=== PATIENT | female | born 1940 | race Caucasian/White ===

== ENCOUNTER 2021-10-03 21:20 | Inpatient (IN) | payer OTHER ==
[2021-10-03] MEDS ORDERED: ONDANSETRON 4 MG/2 ML VIAL ONE (22:14)
--- NOTE | 2021-10-03 22:20 | RAD REPORT ---
EXAM DESCRIPTION: RAD - Abdomen Single View - 10/03/2021 10:10 pm CLINICAL HISTORY: Abd pain Pain COMPARISON: Esophagram Only dated 09/25/2021 FINDINGS: The bowel gas pattern is non-obstructive. No evidence of free air or pneumatosis. No suspi cious calcifications. No significant bony findings. Midline skin connor are present. IMPRESSION: Negative examination.
[2021-10-03] MEDS ORDERED: MORPHINE 4 MG/ML SYR ONE (22:33)
[2021-10-03 22:35] LABS: Absolute Lymphocytes (CBC) 0.6 K/uL (0.7-4.9); Hematocrit 44.9 % (36.0-45.0); Lymphocytes % 3.6 % (15.3-44.8); MCV 92.7 fL (80-100); RBC Red Blood Cell Count 4.85 M/uL (3.86-4.86)
[2021-10-03 22:55] LABS: Albumin 3.8 g/dL (3.4-5.0); Bilirubin Total 0.9 mg/dL (0.2-1.0); Potassium 3.6 mmol/L (3.5-5.1); Protein, Total 7.3 g/dL (6.4-8.2)
[2021-10-04] MEDS ORDERED: ONDANSETRON 4 MG/2 ML VIAL ONE (00:20)
[2021-10-04] MEDS ORDERED: MORPHINE 4 MG/ML SYR ONE ×2 (00:32→07:27)
[2021-10-04 00:39] LABS: Urine Blood Negative (Negative); Urine Glucose Negative (Negative); Urine Protein Negative (Negative); Urine Specific Gravity >=1.030 (1.005-1.030); Urine pH 5.5 (5.0-7.0)
[2021-10-04 01:14] LABS: Urine Bacteria 20-50 /HPF (<20); Urine Mucus 2+ /HPF (None Seen); Urine RBC <5 /HPF (None Seen)
--- NOTE | 2021-10-04 01:16 | EDPHYS ---
Physician Documentation [facility] Name: Cary Cabrera Age: 81 yrs Sex: Female : 1940 Arrival Date: 10/03/2021 Time: 21:22 Bed 7 Private MD: ED Physician Sharon Hinkle HPI: 10/03 22:53 This 81 yrs old Female presents to ER via Wheelchair with complaints of Vomiting, sp3 Abdominal Pain. 22:53 81-year-old female with history of gastroparesis, prior bowel obstruction, esophageal sp3 reflux who recently had an upper and lower GI along with plain film imaging presents with acute on chronic abdominal pain in the lower quadrants, constipation (no bowel movement for 2 days) emesis over the last 48 hours. Emesis is anytime she eats cysts of gastric contents she denies any bleeding. No chest pain, back pain, shortness of breath fever, URI symptoms, travel history, known sick contacts, or any other ROS at this time.. Historical: - Allergies: 21:31 Codeine; kl 21:31 Iodine; kl - Home Meds: 21:31 Ultram Oral [Active]; antiemetic [Active]; Nexium Oral [Active]; kl - PMHx: 21:31 Gastroenteritis; bowel obstruction; kl - PSHx: 21:31 Cholecystectomy; Appendectomy; Exploratory laparotomy; kl - Immunization history:: Adult Immunizations not up to date. - Social history:: Smoking status: Patient denies any tobacco usage or history of. ROS: 22:55 Constitutional: Negative for fever, chills, and weight loss, Eyes: Negative for injury, sp3 pain, redness, and discharge, ENT: Negative for injury, pain, and discharge, Neck: Negative for injury, pain, and swelling, Cardiovascular: Negative for chest pain, palpitations, and edema, Respiratory: Negative for shortness of breath, cough, wheezing, and pleuritic chest pain, Back: Negative for injury and pain, MS/Extremity: Negative for injury and deformity, Skin: Negative for injury, rash, and discoloration, Neuro: Negative for headache, weakness, numbness, tingling, and seizure, Psych: Negative for depression, anxiety, suicide ideation, homicidal ideation, and hallucinations, Allergy/Immunology: Negative for hives, rash, and allergies. 22:55 All other systems are negative. Exam: 22:55 Constitutional: This is a well developed, well nourished patient who is awake, alert, sp3 and in no acute distress. Head/Face: Normocephalic, atraumatic. Eyes: Pupils equal round and reactive to light, extra-ocular motions intact. Lids and lashes normal. Conjunctiva and sclera are non-icteric and not injected. Cornea within normal limits. Periorbital areas with no swelling, redness, or edema. ENT: Nares patent. No nasal discharge, no septal abnormalities noted. External auditory canals are clear. Oropharynx with no redness, swelling, or masses, exudates, or evidence of obstruction, uvula midline. Mucous membranes moist. Neck: Trachea midline, no thyromegaly or masses palpated, and no cervical lymphadenopathy. Supple, full range of motion without nuchal rigidity, or vertebral point tenderness. No Meningismus. Chest/axilla: Normal chest wall appearance and motion. Nontender with no deformity. No lesions are appreciated. Cardiovascular: Regular rate and rhythm with a normal S1 and S2. No gallops, murmurs, or rubs. Normal PMI, no JVD. No pulse deficits. Respiratory: Lungs have equal breath sounds bilaterally, clear to auscultation and percussion. No rales, rhonchi or wheezes noted. No increased work of breathing, no retractions or nasal flaring. Back: No spinal tenderness. No costovertebral tenderness. Full range of motion. Skin: Warm, dry with normal turgor. Normal color with no rashes, no lesions, and no evidence of cellulitis. MS/ Extremity: Pulses equal, no cyanosis. Neurovascular intact. Full, normal range of motion. Neuro: Awake and alert, GCS 15, oriented to person, place, time, and situation. Cranial nerves II-XII grossly intact. Motor strength 5/5 in all extremities. Sensory grossly intact. Cerebellar exam normal. Normal gait. Psych: Awake, alert, with orientation to person, place and time. Behavior, mood, and affect are within normal limits. 22:55 Abdomen/GI: Is tender bilateral lower quadrants without evidence of rebound or guarding. Nonsurgical abdomen.. Vital Signs: 21:28 BP 84 / 71; Pulse 89; Resp 18; Temp 98.2(O); Pulse Ox 96% on R/A; Weight 56.7 kg (R); kl Height 5 ft. 2 in. (157.48 cm); Pain 10/10; 22:29 BP 155 / 64; Pulse 80; Resp 17; Pulse Ox 96% ; vc1 10/04 00:30 BP 137 / 58; Pulse 95; Resp 16; Pulse Ox 95% ; vc1 02:00 BP 136 / 60; Pulse 88; Resp 16; Pulse Ox 96% ; vc1 04:30 BP 134 / 55; Pulse 88; Resp 22; Pulse Ox 92% on R/A; vg1 05:30 BP 132 / 50; Pulse 87; Resp 22; Pulse Ox 91% on R/A; vg1 06:00 BP 120 / 88; Pulse 77; Resp 23; Pulse Ox 93% on R/A; vg1 07:30 BP 135 / 47; Pulse 81; Resp 20; Pulse Ox 93% on R/A; vg1 10/03 21:28 Body Mass Index 22.86 (56.70 kg, 157.48 cm) kl MDM: 10/03 22:55 Data reviewed: vital signs, nurses notes. ED course: 81-year-old female presents with sp3 lower abdominal pain for 48 hours in conjunction with emesis. Patient also has a history of diverticulitis and prior bowel obstruction. Will obtain abdominal pain work-up including laboratory values and CT scan of the abdomen and pelvis. IV pain and nausea control as needed. Disposition will be based on work-up and patient course. Differential diagnosis includes diverticulitis, gastroenteritis, bowel obstruction, and functional abdominal pain. Johnson highly suspicious for vascular pathology, acute coronary syndrome, genitourinary pathology, AAA, BICYCLE I ASSEMBLER pathology, or any other critical findings at this time. Patient is not septic and meets no SIRS criteria.. 10/04 01:14 ED course: Work-up demonstrates leukocytosis of 15,[address] demonstrates colitis sp3 without evidence of diverticulitis. We will administer Cipro and Flagyl IV and admit patient for pain control along with continued treatment.. 01:15 Patient medically screened. sp3 10/03 21:54 Order name: CBC with Diff; Complete Time: 23:01 sp3 10/03 21:54 Order name: CMP; Complete Time: 23:01 sp3 10/03 21:54 Order name: Lipase; Complete Time: 23:01 sp3 10/03 21:54 Order name: Urine Microscopic Only; Complete Time: 01:43 sp3 10/04 00:39 Order name: Urine Dipstick-Ancillary; Complete Time: 01:02 EDMS 10/04 01:17 Order name: Urine Culture EDME 10/03 21:54 Order name: Abdomen 1 View XRAY; Complete Time: 23:01 sp3 10/03 22:16 Order name: Abdomen EDME 10/04 01:19 Order name: SARS RAPID ds4 10/03 21:54 Order name: IV Saline Lock; Complete Time: 22:19 sp3 10/03 21:54 Order name: Labs collected and sent; Complete Time: 22:19 sp3 10/03 21:54 Order name: Urine Dipstick-Ancillary (obtain specimen); Complete Time: 00:41 sp3 Administered Medications: 10/03 22:18 Drug: Zofran (Ondansetron) 4 mg Route: IVP; Site: left forearm; vc1 10/04 00:00 Follow up: Response: No adverse reaction; Nausea unchanged vc1 10/03 22:28 Drug: morphine 4 mg Route: IVP; Infused Over: 4 mins; Site: left forearm; vc1 10/04 00:00 Follow up: Response: No adverse reaction; Pain is unchanged, physician notified; RASS: vc1 Alert and Calm (0) 00:20 Drug: Zofran (Ondansetron) 4 mg Route: IVP; Site: left forearm; vc1 01:00 Follow up: Response: No adverse reaction; Nausea unchanged vc1 00:41 Drug: morphine 4 mg Route: IVP; Infused Over: 4 mins; Site: left forearm; vc1 01:30 Follow up: Response: No adverse reaction; Pain is decreased vc1 01:30 Drug: Cipro (ciprofloxacin) 400 mg Volume: 200 ml; Route: IVPB; Infused Over: 60 mins; vc1 Site: left forearm; 02:24 Follow up: Response: Adverse reaction, Physician notified; IV Status: Order to vc1 discontinue infusion 01:35 Drug: Flagyl (metroNIDAZOLE) 500 mg Volume: 100 ml; Route: IVPB; Rate: 200 ml/hr; vc1 Infused Over: 30 mins; Site: left forearm; 02:23 Follow up: Response: Adverse reaction, Physician notified; IV Status: Order to vc1 discontinue infusion 01:40 Drug: Benadryl (diphenhydrAMINE) 25 mg Route: IVP; Site: left forearm; vc1 02:00 Follow up: Response: Marked relief of symptoms vc1 01:40 Drug: Pepcid (famotidine) 20 mg Route: IVP; Site: left forearm; vc1 02:00 Follow up: Response: Marked relief of symptoms vc1 02:23 Drug: Zosyn (piperacillin-tazobactam) 3.375 grams Route: IVPB; Infused Over: 60 mins; vc1 Site: left forearm; 03:23 Follow up: IV Status: Completed infusion; IV Intake: 100ml vc1 Disposition Summary: 10/04/21 01:15 Hospitalization Ordered Hospitalization Status: Inpatient Admission sp3 Provider: Jose Dunlap sp3 Condition: Stable sp3 Problem: an acute exacerbation sp3 Symptoms: have worsened sp3 Bed/Room Type: Standard sp3 Location: Telemetry/MedSurg (Inpatient)(10/04/21 06:08) mw Room Assignment: [facility](10/04/21 06:08) mw Diagnosis - Other specified noninfective gastroenteritis and colitis sp3 Forms: - Medication Reconciliation Form sp3 - SBAR form sp3 Signatures: Dispatcher [employer] EDME Jerica Vilchis RN RN kl Webb, Martha, RN RN mw Patel, Setul, MD MD sp3 Winnie Josue tw5 Shanon Vegas RN RN vc1 Christel Marroquin PA PA sb3 Corrections: (The following items were deleted from the chart) 10/03 22:16 22:11 Abdomen Pelvis W Con+CT.RAD.BRZ ordered. EDME EDMS 10/04 01:16 01:15 Telemetry/MedSurg (Inpatient) sp3 mw 01:16 01:15 sp3 mw 06:08 01:16 [facility] ER HOLD mw mw 06:08 01:16 ERHOLD- mw mw
--- NOTE | 2021-10-04 01:16 | ER ---
Nurse's Notes [facility] Name: Cary Cabrera Age: 81 yrs Sex: Female : 1940 Arrival Date: 10/03/2021 Time: 21:22 Bed 7 Private MD: Diagnosis: Other specified noninfective gastroenteritis and colitis Presentation: 10/03 21:28 Chief complaint: Patient states: vomiting since 1 pm today seeing GI doctor for same kl issue worse today taking prescribed medication for vomiting without relief also c/o lower abdominal pain. Coronavirus screen: Vaccine status: Patient reports being unvaccinated. Ebola Screen: Patient negative for fever greater than or equal to 101.5 degrees Fahrenheit, and additional compatible Ebola Virus Disease symptoms. Initial Sepsis Screen: Does the patient meet any 2 criteria? Systolic BP < 90 mmHg. Does the patient have a suspected source of infection? No. Patient's initial sepsis screen is negative. Risk Assessment: Do you want to hurt yourself or someone else? Patient reports no desire to harm self or others. Onset of symptoms was October 03, 2021 at 13:00. 21:28 Method Of Arrival: Wheelchair 21:28 Acuity: FORTINO 3 kl Triage Assessment: 21:34 General: Appears distressed, uncomfortable, Behavior is cooperative, anxious. Pain: kl Complains of pain in right lower quadrant and left lower quadrant Pain currently is 10 out of 10 on a pain scale. GI: Reports lower abdominal pain, nausea, vomiting. Historical: - Allergies: 21:31 Codeine; kl 21:31 Iodine; kl - Home Meds: 21:31 Ultram Oral [Active]; antiemetic [Active]; Nexium Oral [Active]; kl - PMHx: 21:31 Gastroenteritis; bowel obstruction; kl - PSHx: 21:31 Cholecystectomy; Appendectomy; Exploratory laparotomy; kl - Immunization history:: Adult Immunizations not up to date. - Social history:: Smoking status: Patient denies any tobacco usage or history of. Screenin:29 Abuse screen: Denies threats or abuse. Nutritional screening: No deficits noted. vc1 Tuberculosis screening: No symptoms or risk factors identified. Fall Risk None identified. Assessment: 21:40 Reassessment: See triage assessment. vc1 21:40 Reassessment: No changes from previously documented assessment. Patient states symptoms vc1 have not improved. GI: Pt is actively vomiting bile. 22:09 General: CT called. Extra green top at bedside. . tw5 23:00 Reassessment: No changes from previously documented assessment. Patient and/or family vc1 updated on plan of care and expected duration. Pain level reassessed. 10/04 00:00 Reassessment: No changes from previously documented assessment. Patient and/or family vc1 updated on plan of care and expected duration. Pain level reassessed. 01:36 General: Pt developed a rash and hives starting at IV site up to elbow on left arm. IV vc1 antibiotics stopped and DC'd by Provider, Benadryl and Pepcid administered via IV.. 02:00 Reassessment: Patient and/or family updated on plan of care and expected duration. Pain vc1 level reassessed. Patient is alert, oriented x 3, equal unlabored respirations, skin warm/dry/pink. 03:00 Reassessment: No changes from previously documented assessment. GI: Pt is actively vc1 vomiting bile, Reports lower abdominal pain, upper abdominal pain, nausea, vomiting. Vital Signs: 10/03 21:28 BP 84 / 71; Pulse 89; Resp 18; Temp 98.2(O); Pulse Ox 96% on R/A; Weight 56.7 kg (R); Height 5 ft. 2 in. (157.48 cm); Pain 10/10; 22:29 BP 155 / 64; Pulse 80; Resp 17; Pulse Ox 96% ; vc1 10/04 00:30 BP 137 / 58; Pulse 95; Resp 16; Pulse Ox 95% ; vc1 02:00 BP 136 / 60; Pulse 88; Resp 16; Pulse Ox 96% ; vc1 04:30 BP 134 / 55; Pulse 88; Resp 22; Pulse Ox 92% on R/A; vg1 05:30 BP 132 / 50; Pulse 87; Resp 22; Pulse Ox 91% on R/A; vg1 06:00 BP 120 / 88; Pulse 77; Resp 23; Pulse Ox 93% on R/A; vg1 07:30 BP 135 / 47; Pulse 81; Resp 20; Pulse Ox 93% on R/A; vg1 10/03 21:28 Body Mass Index 22.86 (56.70 kg, 157.48 cm) ED Course: 10/03 21:22 Patient arrived in ED. bp1 21:31 Triage completed. kl 21:38 Sharon Hinkle MD is Attending Physician. sp3 21:46 Ngozi Bah, MARK is Primary Nurse. ke1 22:05 Inserted saline lock: 22 gauge in left forearm, using aseptic technique. Blood vc1 collected. 22:12 Abdomen 1 View XRAY In Process Unspecified. EDMS 22:29 Arm band placed on. vc1 22:29 Patient has correct armband on for positive identification. Bed in low position. Client vc1 placed on continuous cardiac and pulse oximetry monitoring. NIBP monitoring applied. 22:43 Abdomen In Process Unspecified. EDMS 08/ 00:47 Urine Microscopic Only Sent. vc1 01:14 Jose Dunlap is Hospitalizing Provider. sp3 03:00 No provider procedures requiring assistance completed. Patient admitted, IV remains in vc1 place. Administered Medications: 10/03 22:18 Drug: Zofran (Ondansetron) 4 mg Route: IVP; Site: left forearm; vc1 10/04 00:00 Follow up: Response: No adverse reaction; Nausea unchanged vc1 10/03 22:28 Drug: morphine 4 mg Route: IVP; Infused Over: 4 mins; Site: left forearm; vc1 10/04 00:00 Follow up: Response: No adverse reaction; Pain is unchanged, physician notified; RASS: vc1 Alert and Calm (0) 00:20 Drug: Zofran (Ondansetron) 4 mg Route: IVP; Site: left forearm; vc1 01:00 Follow up: Response: No adverse reaction; Nausea unchanged vc1 00:41 Drug: morphine 4 mg Route: IVP; Infused Over: 4 mins; Site: left forearm; vc1 01:30 Follow up: Response: No adverse reaction; Pain is decreased vc1 01:30 Drug: Cipro (ciprofloxacin) 400 mg Volume: 200 ml; Route: IVPB; Infused Over: 60 mins; vc1 Site: left forearm; 02:24 Follow up: Response: Adverse reaction, Physician notified; IV Status: Order to vc1 discontinue infusion 01:35 Drug: Flagyl (metroNIDAZOLE) 500 mg Volume: 100 ml; Route: IVPB; Rate: 200 ml/hr; vc1 Infused Over: 30 mins; Site: left forearm; 02:23 Follow up: Response: Adverse reaction, Physician notified; IV Status: Order to vc1 discontinue infusion 01:40 Drug: Benadryl (diphenhydrAMINE) 25 mg Route: IVP; Site: left forearm; vc1 02:00 Follow up: Response: Marked relief of symptoms vc1 01:40 Drug: Pepcid (famotidine) 20 mg Route: IVP; Site: left forearm; vc1 02:00 Follow up: Response: Marked relief of symptoms vc1 02:23 Drug: Zosyn (piperacillin-tazobactam) 3.375 grams Route: IVPB; Infused Over: 60 mins; vc1 Site: left forearm; 03:23 Follow up: IV Status: Completed infusion; IV Intake: 100ml vc1 Medication: 03:00 VIS not applicable for this client. vc1 Intake: 03:23 IV: 100ml; Total: 100ml. vc1 Outcome: 01:15 Decision to Hospitalize by Provider. sp3 03:00 Admitted to ER Hold. Please see [facility] for further documentation. vc1 03:00 Condition: stable 03:00 Instructed on the need for admit, medication usage. vc1 08:25 Admitted to Tele room 208. jh6 09:11 Patient left the ED. [facility] Signatures: Dispatcher [employer] Jerica Ann RN RN kl Garcia, Victoria RN RN vg1 Christine Irby Setul, MD MD sp3 Winnie Josue Natacha Clemons RN RN jh6 Shanon Vegas RN RN 1 Ngozi Bah RN RN ke1 Corrections: (The following items were deleted from the chart) 04:51 01:34 Flagyl (metroNIDAZOLE) 500 mg 100 ml IVPB at 200 ml/hr in left forearm over 30 vc1 mins 100 ml vc1 04:52 01:35 Cipro (ciprofloxacin) 400 mg 200 ml IVPB in left forearm over 60 mins 200 ml vc1 vc1
[2021-10-04] MEDS ORDERED: METRONIDAZOLE 500mg IVPB 500 MG/100 ML BAG IV ONE (01:22)
[2021-10-04] MEDS ORDERED: CIPROFLOXACIN 400mg IV 400 MG/200 ML BAG IV ONE (01:22)
[2021-10-04] MEDS ORDERED: DIPHENHYDRAMINE 50 MG/ML VIAL ONE (01:45)
[2021-10-04] MEDS ORDERED: FAMOTIDINE 20 MG/2 ML VIAL IV ONE (01:45)
[2021-10-04] MEDS ORDERED: PIPERACIL/TAZO 3.375 GM VIAL IV ONE (02:00)
[2021-10-04] MEDS ORDERED: NA CHLORIDE 0.9% 100 ML ONE (02:00)
--- NOTE | 2021-10-04 02:27 | P.HP ---
Certification for Inpatient Patient admitted to: Inpatient With expected LOS: <2 Midnights Patient will require the following post-hospital care: None Practitioner: I am a practitioner with admitting privileges, knowledge of patient current condition, hospital course, and medical plan of care. Services: Services provided to patient in accordance with Admission requirements found in Title 42 Section 412.3 of the Code of Federal Regulations Patient History Date of Service: 10/04/21 Reason for admission: Colitis History of Present Illness: Patient is an 81-year-old female with history of small bowel obstruction, gastroparesis, and GERD who presents to the ED with complaints of vomiting, abdominal pain, and constipation. Patient reports that she has been experiencing intermittent abdominal pain for 8 months now. She has been seeing Dr. Fierro outpatient who has done many tests. She is supposed to see him in a few days for the results. She states that she has not had a BM in about 1.5 days. Denies passing gas. Abdomen is soft, not distened, hypoactive bowel sounds. RN reports that patient hasn't been vomiting any contents, mainly dry heaving. Her labs today are significant for WBC 15, BUN 27, urine positive for UTI. Electrolytes WNL. CT was suggestive of colitis. She was started on Cipro and Flagyl, broke out in hives and was subsequently transitioned to Zosyn. Given morphine and Zofran with improvement in symptoms. ED provider wishes to admit patient for further evaluation and treatment. Results from previous imaging Abdominal MRI: Focal fatty infiltration right lobe of the liver suspected. Ventral hernia containing small bowel Esophagram: Mild to moderate smooth narrowing distal esophagus probably a stricture rather than mass. Small hiatal hernia Allergies ciprofloxacin Allergy (Verified 10/04/21 03:38) Hives/Rash codeine Allergy (Unverified 01/21/17 23:55) Unknown iodine Allergy (Unverified 01/21/17 23:55) Unknown metronidazole [From Flagyl] Allergy (Verified 10/04/21 03:38) Hives/Rash Home medications list reviewed: Yes Home Medications: Esomeprazole Magnesium [Nexium 24Hr] 20 mg PO DAILY 10/04/21 Ondansetron [Zofran] 4 mg PO Q6H PRN 10/04/21 traMADol HCL [Ultram] 50 mg PO TID PRN 10/04/21 - Past Medical/Surgical History Diabetic: No -: SBO -: Gastroparesis -: GERD -: Cholecystectomy -: Appendectomy -: Exploratory Laparatomy Psychosocial/ Personal History: Patient lives at home. She has 2 sons. - Family History Family History: Reviewed- Non-Contributory - Social History Smoking Status: Never smoker Alcohol use: No CD- Drugs: No Caffeine use: Yes Place of Residence: Home Review of Systems Gastrointestinal: Nausea, Vomiting, Abdominal Pain, Constipation, Melena Physical Examination - Physical Exam General: Alert, In no apparent distress HEENT: Atraumatic, PERRLA, EOMI, Sclerae nonicteric Neck: Supple, 2+ carotid pulse no bruit, No LAD, Without JVD or thyroid abnormality Respiratory: Clear to auscultation bilaterally, Normal air movement Cardiovascular: Regular rate/rhythm, Normal S1 S2 Gastrointestinal: Hypoactive, Soft and benign, Non-distended, No tenderness Musculoskeletal: No tenderness Integumentary: No rashes Neurological: Normal speech, Normal strength at 5/5 x4 extr, Normal tone, Normal affect - Studies Laboratory Data (last 24 hrs) 10/03/21 22:20: Sodium 138, Potassium 3.6, BUN 27 H, Creatinine 0.67, Glucose 147 H, Total Bilirubin 0.9, AST 22, ALT 30, Alkaline Phosphatase 80, Lipase 85 10/03/21 22:20: WBC 15.3 H, Hgb 15.3 H, Hct 44.9, Plt Count 286 Assessment and Plan - Problems (Diagnosis) (1) Colitis Current Visit: Yes Status: Acute (2) Nausea and vomiting Current Visit: Yes Status: Acute Qualifiers: Vomiting type: unspecified Qualified Code(s): R11.2 - Nausea with vomiting, unspecified (3) Constipation Current Visit: Yes Status: Acute Qualifiers: Constipation type: unspecified constipation type Qualified Code(s): K59.00 - Constipation, unspecified (4) Dehydration Current Visit: Yes Status: Acute (5) Gastroparesis Current Visit: Yes Status: Acute - Plan -NPO until vomiting/dry heaving resolves. IV fluids -Continue IV zosyn -Morphine and phenegran as needed -Monitor and replete electrolytes per protocol -Reconcile and continue home medications -Lovenox for VTE ppx -Full code Discharge Plan: Home Plan to discharge in: 48 Hours - Advance Directives Does patient have a Living Will: No Does patient have a Durable POA for Healthcare: No - Code Status/Comfort Care Code Status Assessed: Yes (Full) Critical Care: No Time Spent Managing Pts Care (In Minutes): 50
[2021-10-04 03:20] LABS: SARS-CoV-2 Antigen Rapid Res Negative (Negative)
[2021-10-04] MEDS ORDERED: ONDANSETRON 4 MG/2 ML VIAL IV PRN (03:38)
[2021-10-04 03:54] VITALS: BMI 28.3
[2021-10-04] MEDS: PROMETHAZINE INJ 25 MG/ML AMP IV PRN ×5 (04:17→20:41)
[2021-10-04] MEDS ORDERED: PROMETHAZINE INJ 25 MG/ML AMP ONE (04:19)
[2021-10-04] MEDS ORDERED: NA CHLORIDE 0.9% 50 ML ONE (04:19)
[2021-10-04] MEDS: MORPHINE 4 MG/ML SYR IV PRN ×4 (07:24→20:41)
[2021-10-04] MEDS: ACETAMINOPHEN 500 MG TAB PO PRN (09:53)
[2021-10-04] MEDS: ENOXAPARIN 40 MG/0.4 ML SQ SCH (09:56)
[2021-10-04] MEDS: PIPER TAZO 3.375 GM in NA CHLORIDE 0.9% 100 ML IV SCH ×2 (09:56→17:12)
--- NOTE | 2021-10-04 10:09 | RAD REPORT ---
EXAM DESCRIPTION: Abdomen Pelvis Wo Contrast CLINICAL HISTORY: Abdomen pain COMPARISON: None Available. TECHNIQUE: CT of the abdomen and pelvis without IV contrast. Evaluation of the solid organs and vasc ulature is suboptimal due to lack of IV contrast. This exam was performed according to our department al dose-optimization program, which includes automated exposure control, adjustment of the mA and/or kV according to patient size and/or use of iterative reconstruction technique. FINDINGS: Lung Bases: Minimal bibasilar dependent atelectasis. Bones: Mild multilevel endplate spondylosis and facet arthropathy. Age-indeterminate compression frac tures of the bowel for and L5 vertebral body with approximately 60 and 40% loss of vertebral body hei ght respectively. Right proximal femoral fixation. Osteoarthritic change of the left hip. Abdomen: Liver: The liver has normal size and density. Gallbladder: No calcified gallstones. Spleen, Pancreas, and Adrenal Glands: The spleen, pancreas, and adrenal glands are unremarkable. Kidneys: The kidneys have normal size without evidence of hydronephrosis. No obstructing ureteral janeth culi. Vasculature: Aortoiliac atherosclerosis. IVC is unremarkable. Stomach: Moderate hiatal hernia. Other: No free intraperitoneal air. Trace free fluid. Pelvis: Bladder: Urinary bladder is unremarkable. Bowel: No dilated loops of large or small bowel. Long segment wall thickening with adjacent inflamm atory change of the descending colon. Questionable retained contrast in the distal colon. Scattered d iverticula of the colon. Appendix: Not well individually identified. Pelvis: Prior hysterectomy. IMPRESSION: 1. Long segment wall thickening with adjacent inflammatory change of the descending co man. These findings could be seen with nonspecific colitis. 2. Diverticulosis without evidence of acute diverticulitis. 3. Moderate hiatal hernia. 4. Age-indeterminate compression fractures of the L4 and L5 vertebral bodies with approximately 60% loss of vertebral body height respectively. Correlation for point tenderness recommended. MRI would provide more complete characterization. Electronically signed by: Jitendra Barlow 10/03/2021 11:09 PM CDT Due to temporary technical issues with the PACS/Fluency reporting system, reports are being signed by the in house radiologists without review as a courtesy to insure prompt reporting. The interpreting radiologist is fully responsible for the content of the report.
--- NOTE | 2021-10-04 12:48 | P.PN ---
Date of Service: 10/04/21 Patient seen and examined. She is complaining of lower abdominal pain. Also complaining of sore throat and sinus drainage. She reports frequent but small mucoid bowel movements. Plan: Continue IV Zosyn. IV hydration Cetirizine for allergic rhinitis. Stool studies-C. difficile and fecal leukocyte. Clear liquid diet and advance as tolerated.
[2021-10-04] MEDS: CHLORASEPTIC LOZENGES PO PRN (13:14)
[2021-10-04] MEDS: CETIRIZINE HCL 5 MG TABLET PO PRN (13:15)
[2021-10-04] MEDS: D5NS KCL 20MEQ 20 MEQ/1,000 ML BAG IV SCH (18:40)
[2021-10-05] MEDS: MORPHINE 4 MG/ML SYR IV PRN ×5 (01:35→20:20)
[2021-10-05] MEDS: PIPER TAZO 3.375 GM in NA CHLORIDE 0.9% 100 ML IV SCH ×3 (01:35→16:54)
[2021-10-05] MEDS: PROMETHAZINE INJ 25 MG/ML AMP IV PRN ×5 (01:36→20:20)
[2021-10-05] MEDS: D5NS KCL 20MEQ 20 MEQ/1,000 ML BAG IV SCH ×2 (06:32→21:37)
[2021-10-05 06:35] LABS: Absolute Lymphocytes (CBC) 1.5 K/uL (0.7-4.9); Lymphocytes % 11.8 % (15.3-44.8); MCV 95.2 fL (80-100); MPV 8.4 fL (7.6-11.3)
[2021-10-05 06:56] LABS: Magnesium 2.1 mg/dL (1.8-2.4); Potassium 4.2 mmol/L (3.5-5.1)
[2021-10-05] MEDS: ENOXAPARIN 40 MG/0.4 ML SQ SCH (08:56)
[2021-10-05] MEDS: CALCIUM CARBONATE CHEW 500MG TAB PO PRN ×2 (10:42→20:08)
[2021-10-05] MEDS: CETIRIZINE HCL 5 MG TABLET PO PRN (14:13)
--- NOTE | 2021-10-05 18:01 | P.PN ---
Subjective Date of Service: 10/05/21 Chief Complaint: Colitis Patient did not tolerate clear liquid diet today. No diarrhea. She still complaining of abdominal pain. No recorded fever. Physical Examination - Vital Signs Temperature: 97.8 F Blood Pressure: 120/55 Pulse: 107 Respirations: 18 Pulse Ox (%): 90 Assessment And Plan - Current Problems (Diagnosis) (1) Colitis Current Visit: Yes Status: Acute (2) Gastroparesis Current Visit: Yes Status: Acute (3) Leukocytosis Current Visit: Yes Status: Acute - Plan Physical Exam General: Alert, In no apparent distress HEENT: Sclerae nonicteric Neck: Supple, Without JVD. Respiratory: Clear to auscultation bilaterally, Normal air movement Cardiovascular: Regular rate/rhythm, Normal S1 S2 Gastrointestinal: Normal bowel sounds, soft and benign, lower abdominal tenderness. Integumentary: No rashes Neurological: Normal speech, Normal strength at 5/5 x4 extr. Plan: Continue antibiotics. Clear liquids as tolerated. Check stool for C. difficile and fecal leukocytes. Supportive measures-pain management and antiemetics as needed. Continue IV fluid. Monitor electrolytes and replete as needed.
[2021-10-06] MEDS: MORPHINE 4 MG/ML SYR IV PRN ×6 (01:15→21:16)
[2021-10-06] MEDS: PROMETHAZINE INJ 25 MG/ML AMP IV PRN ×6 (01:15→21:16)
[2021-10-06] MEDS: PIPER TAZO 3.375 GM in NA CHLORIDE 0.9% 100 ML IV SCH ×3 (01:16→16:24)
[2021-10-06 03:56] LABS: Absolute Lymphocytes (CBC) 1.2 K/uL (0.7-4.9); Hematocrit 37.1 % (36.0-45.0); Lymphocytes % 11.1 % (15.3-44.8); MCV 95.7 fL (80-100); MPV 8.4 fL (7.6-11.3); RBC Red Blood Cell Count 3.88 M/uL (3.86-4.86)
[2021-10-06 04:14] LABS: Magnesium 1.8 mg/dL (1.8-2.4); Potassium 3.6 mmol/L (3.5-5.1)
[2021-10-06] MEDS ORDERED: MAGNESIUM SULFATE 1 gm IVPB 1 GM/100 ML BAG IV ONE (05:00)
[2021-10-06] MEDS: D5NS KCL 20MEQ 20 MEQ/1,000 ML BAG IV SCH (08:38)
[2021-10-06] MEDS: ENOXAPARIN 40 MG/0.4 ML SQ SCH (08:39)
[2021-10-06] MEDS ORDERED: POTASSIUM CL SA 10 MEQ TAB PO ONE (09:00)
[2021-10-06] MEDS ORDERED: MAGNES/ALUMIN/SIMET 30ML UCUP PO PRN (13:19)
[2021-10-06] MEDS ORDERED: SODIUM CHLORIDE 0.9% 10ML INJ IV PRN (13:19)
[2021-10-06] MEDS: CHLORASEPTIC LOZENGES PO PRN (13:28)
--- NOTE | 2021-10-06 13:30 | P.PN ---
Subjective Date of Service: 10/06/21 Chief Complaint: Colitis Patient still complaining of abdominal pain and not tolerating diet No diarrhea. Physical Examination - Vital Signs Temperature: 99.3 F Blood Pressure: 158/66 Pulse: 95 Respirations: 18 Pulse Ox (%): 90 - Studies Microbiology Data (last 24 hrs): 10/04/21 00:36 Clean Catch Urine [place] Count - Final <10,000 CFU/ML. 10/04/21 00:36 Clean Catch Urine - Final MIXED EMBER. Assessment And Plan - Current Problems (Diagnosis) (1) Colitis Current Visit: Yes Status: Acute (2) Gastroparesis Current Visit: Yes Status: Acute (3) Leukocytosis Current Visit: Yes Status: Acute - Plan Physical Exam General: Alert, In no apparent distress HEENT: Sclerae nonicteric Neck: Supple, Without JVD. Respiratory: Clear to auscultation bilaterally, Normal air movement Cardiovascular: Regular rate/rhythm, Normal S1 S2 Gastrointestinal: Normal bowel sounds, soft and benign, tenderness in the epigastrium and lower abdomen. Integumentary: No rashes Plan: Continue antibiotics. Clear liquids as tolerated. Start Protonix and antacids. Diarrhea stopped. No need for C. difficile testing. Supportive measures-pain management and antiemetics as needed. Continue IV fluid. Monitor electrolytes and replete as needed. GI consult tomorrow if available. Patient recently had an EGD and colonoscopy, done by Dr. Perales.
[2021-10-06] MEDS: CETIRIZINE HCL 5 MG TABLET PO PRN (16:23)
[2021-10-06] MEDS: METOCLOPRAMIDE 10 MG/2mL INJ IV PRN (16:39)
[2021-10-06] MEDS ORDERED: BISACODYL 10 MG RECTAL SUPP PR ONE (17:09)
[2021-10-06] MEDS: LACTULOSE 20 GM/30 ML UCUP PO SCH (21:12)
[2021-10-06] MEDS: PANTOPRAZOLE 40 MG INJ IVP SCH (21:16)
[2021-10-07] MEDS: PIPER TAZO 3.375 GM in NA CHLORIDE 0.9% 100 ML IV SCH ×3 (01:36→16:35)
[2021-10-07] MEDS: METOCLOPRAMIDE 10 MG/2mL INJ IV PRN ×2 (03:17→12:05)
[2021-10-07 05:58] LABS: Absolute Lymphocytes (CBC) 1.5 K/uL (0.7-4.9); Hematocrit 34.6 % (36.0-45.0); Lymphocytes % 14.3 % (15.3-44.8); MCV 94.7 fL (80-100); MPV 8.6 fL (7.6-11.3); RBC Red Blood Cell Count 3.66 M/uL (3.86-4.86)
[2021-10-07 06:13] LABS: Magnesium 1.9 mg/dL (1.8-2.4); Potassium 3.8 mmol/L (3.5-5.1)
[2021-10-07] MEDS: CHLORASEPTIC LOZENGES PO PRN (07:39)
[2021-10-07] MEDS: LACTULOSE 20 GM/30 ML UCUP PO SCH ×2 (07:40→13:59)
[2021-10-07] MEDS: ENOXAPARIN 40 MG/0.4 ML SQ SCH (07:40)
[2021-10-07] MEDS: PROMETHAZINE INJ 25 MG/ML AMP IV PRN ×3 (07:41→21:12)
[2021-10-07] MEDS: PANTOPRAZOLE 40 MG INJ IVP SCH ×2 (07:41→21:11)
[2021-10-07] MEDS: MORPHINE 4 MG/ML SYR IV PRN ×4 (07:44→21:11)
[2021-10-07] MEDS ORDERED: POTASSIUM CL SA 10 MEQ TAB PO ONE (09:00)
--- NOTE | 2021-10-07 12:32 | P.PN ---
Subjective Date of Service: 10/07/21 Chief Complaint: Colitis Patient reports no significant improvement in her symptoms She still complaining of abdominal pain, nausea and vomiting. Still constipated. She stated she tried having a bowel movement but she could only move a small mucoid stool. She did not bring the lactulose, and has not gotten the Dulcolax suppository yet. Physical Examination - Vital Signs Temperature: 98.8 F Blood Pressure: 162/70 Pulse: 94 Respirations: 20 Pulse Ox (%): 92 - Studies Microbiology Data (last 24 hrs): 10/04/21 00:36 Clean Catch Urine [place] Count - Final <10,000 CFU/ML. 10/04/21 00:36 Clean Catch Urine - Final MIXED EMBER. Assessment And Plan - Current Problems (Diagnosis) (1) Colitis Current Visit: Yes Status: Acute (2) Gastroparesis Current Visit: Yes Status: Acute (3) Leukocytosis Current Visit: Yes Status: Acute - Plan Physical Exam General: Alert, In no apparent distress HEENT: Sclerae nonicteric Neck: Supple, Without JVD. Respiratory: Clear to auscultation bilaterally, Normal air movement Cardiovascular: Regular rate/rhythm, Normal S1 S2 Gastrointestinal: Normal bowel sounds, soft and benign, tenderness in the epigastrium and lower abdomen. Integumentary: No rashes Plan: Continue antibiotics. Clear liquids as tolerated. Continue Protonix and antacids. Patient still constipated. Patient given a regimen of oral lactulose and Dulcolax suppository for constipation Supportive measures-pain management and antiemetics as needed. Continue IV fluid. Monitor electrolytes and replete as needed. Dr. Perales informed and has agreed to evaluate patient. Recent EGD and colonoscopy unremarkable per Dr. Perales. Only precancerous polyp and gastritis found during the procedure.
[2021-10-07] MEDS: D5NS KCL 20MEQ 20 MEQ/1,000 ML BAG IV SCH ×2 (12:40→14:10)
[2021-10-07] MEDS ORDERED: FLEET ENEMA ADULT PR ONE (14:00)
[2021-10-07] MEDS: CETIRIZINE HCL 5 MG TABLET PO PRN (17:11)
--- NOTE | 2021-10-07 20:21 | P.PN ---
Date of Service: 10/08/21 Subjective: had small BMs earlier today, feels slightly improved continues with nausea, abdominal discomfort ROS: 10 point ROS as noted above, otherwise negative Physical Exam: Gen: NAD, alert HEENT: normal conjunctiva, sclera anicteric CV: regular rate & rhythm, no edema Pulm: non-labored respirations, clear bilaterally Abd: soft, mild tenderness diffusely Neuro: normal speech, normal affect, moves all extremities vitals reviewed Problem List Abd pain, intractable nausea/vomiting Colitis Constipation GERD h/o gastroparesis h/o SBO Colitis - continues with abd pain, not tolerating CLD continue empiric antibiotics - Zosyn; had reaction in ER (hives) after cipro/flagyl temp: 100.4 (10/06) Ur Cx (10/04): mixed bella leukocytosis resolved continue IVF until tolerating more PO pain meds and antiemetics as needed GI Consulted - Dr. Perales has seen in outpatient and saw patient on 10/07, reports patient has chronic nausea and abdominal pain; colitis suspected to be resolving / resolved Recent EGD and colonoscopy unremarkable per Dr. Perales. Only precancerous polyp and gastritis found during the procedure. continue protonix KUB ordered to eval obstructive pattern this morning Constipation given oral lactulose and dulcolax suppository yesterday with some improvement seems to be chronic issue per GI KUB to be done today VTE: lovenox Code: full Dispo: home, ~1-2 days pending improvement, tolerating PO Time Spent Managing Pts Care (In Minutes): 35
[2021-10-08] MEDS: ACETAMINOPHEN 500 MG TAB PO PRN (00:25)
[2021-10-08] MEDS: PIPER TAZO 3.375 GM in NA CHLORIDE 0.9% 100 ML IV SCH ×3 (00:26→17:16)
[2021-10-08 02:40] VITALS: O2SAT 95
[2021-10-08 04:30] LABS: Potassium 4.1 mmol/L (3.5-5.1)
[2021-10-08] MEDS: D5NS KCL 20MEQ 20 MEQ/1,000 ML BAG IV SCH ×2 (06:20→15:28)
[2021-10-08] MEDS: PROMETHAZINE INJ 25 MG/ML AMP IV PRN (06:22)
[2021-10-08] MEDS: PANTOPRAZOLE 40 MG INJ IVP SCH ×2 (09:10→20:07)
[2021-10-08] MEDS: ENOXAPARIN 40 MG/0.4 ML SQ SCH (09:11)
[2021-10-08] MEDS: METOCLOPRAMIDE 10 MG/2mL INJ IV PRN ×2 (09:16→20:07)
[2021-10-08] MEDS: CETIRIZINE HCL 5 MG TABLET PO PRN (11:24)
--- NOTE | 2021-10-08 11:33 | RAD REPORT ---
EXAM DESCRIPTION: RAD - Abdomen 1 View (KUB) - 10/08/2021 10:08 am CLINICAL HISTORY: evaluate stool content COMPARISON: Abdomen Pelvis Wo Contrast dated 10/03/2021; Abdomen Single View dated 10/03/2021 FINDINGS: No abnormal large or small bowel dilatation. No free air, pneumatosis or other emergent fi nding. Numerous staple lines are seen along the midline abdomen from prior abdominal wall repair. Sca ttered air and stool seen in the nondilated colon. There remains a dense concentration of contrast ne ar the rectosigmoid junction. This was present on the October 03 CT study. Lumbar spine degenerative change matching prior imaging. IMPRESSION: Dense concentration of contrast at the sigmoid rectum junction of the colon similar to A ugust 11 imaging. Overall, the colon shows scattered air and stool without abnormal colon dilatation.
[2021-10-08] MEDS: MORPHINE 4 MG/ML SYR IV PRN ×2 (12:00→20:08)
[2021-10-08] MEDS ORDERED: FLEET ENEMA ADULT PR ONE (23:36)
[2021-10-09] MEDS: PIPER TAZO 3.375 GM in NA CHLORIDE 0.9% 100 ML IV SCH ×2 (00:20→08:37)
[2021-10-09] MEDS: MORPHINE 4 MG/ML SYR IV PRN (01:01)
[2021-10-09 03:53] LABS: Hematocrit 34.4 % (36.0-45.0); MCV 93.2 fL (80-100); MPV 7.9 fL (7.6-11.3); RBC Red Blood Cell Count 3.69 M/uL (3.86-4.86)
[2021-10-09 04:07] LABS: Albumin 2.1 g/dL (3.4-5.0); Bilirubin Total 0.5 mg/dL (0.2-1.0); Magnesium 1.7 mg/dL (1.8-2.4); Potassium 3.5 mmol/L (3.5-5.1); Protein, Total 5.5 g/dL (6.4-8.2)
[2021-10-09] MEDS ORDERED: MAGNESIUM SULFATE 1 gm IVPB 1 GM/100 ML BAG IV ONE (05:13)
[2021-10-09] MEDS: POTASSIUM 25 MEQ EFFERV TAB PO ONE ×2 (05:14→05:32)
[2021-10-09] MEDS: METOCLOPRAMIDE 10 MG/2mL INJ IV PRN (05:32)
[2021-10-09] MEDS: D5NS KCL 20MEQ 20 MEQ/1,000 ML BAG IV SCH (05:33)
--- NOTE | 2021-10-09 06:06 | P.PN ---
Date of Service: 10/09/21 Subjective: ROS: 10 point ROS as noted above, otherwise negative Physical Exam: Gen: NAD, alert HEENT: normal conjunctiva, sclera anicteric CV: regular rate & rhythm, no edema Pulm: non-labored respirations, clear bilaterally Abd: soft, mild tenderness diffusely Neuro: normal speech, normal affect, moves all extremities vitals reviewed Problem List Abd pain, intractable nausea/vomiting Colitis Constipation GERD h/o gastroparesis h/o SBO Colitis - continues with abd pain, not tolerating CLD continue empiric antibiotics - Zosyn; had reaction in ER (hives) after cipro/flagyl temp: 100.4 (10/06) Ur Cx (10/04): mixed bella leukocytosis resolved continue IVF until tolerating more PO pain meds and antiemetics as needed GI Consulted - Dr. Perales has seen in outpatient and saw patient on 10/07, reports patient has chronic nausea and abdominal pain; colitis suspected to be resolving / resolved Recent EGD and colonoscopy unremarkable per Dr. Perales. Only precancerous polyp and gastritis found during the procedure. continue protonix KUB ordered to eval obstructive pattern this morning Constipation given oral lactulose and dulcolax suppository yesterday with some improvement seems to be chronic issue per GI KUB to be done today VTE: lovenox Code: full Dispo: home, ~1-2 days pending improvement, tolerating PO Time Spent Managing Pts Care (In Minutes): 35
[2021-10-09] MEDS ORDERED: KCL 20 MEQ/100 mL IVPB 20 MEQ/100 ML BAG IV SCH (07:00)
[2021-10-09] MEDS: ENOXAPARIN 40 MG/0.4 ML SQ SCH ×2 (08:38→08:44)
[2021-10-09] MEDS: PANTOPRAZOLE 40 MG INJ IVP SCH (08:41)
--- NOTE | 2021-10-09 11:33 | EKG ---
Test Date: 2021-10-08 Test Time: 00:02:11 Tai Chi Instructor: RT-O MEASUREMENT RESULTS: Intervals: Rate: 104 [place]: 162 QRSD: 74 QT: 310 QTc: 407 [place]: P: 34 [place]: 162 QRS: 53 T: 26 INTERPRETIVE STATEMENTS: Sinus tachycardia Septal infarct, age undetermined Abnormal ECG Compared to ECG 04/09/2007 07:11:19 Myocardial infarct finding now present Sinus rhythm no longer present Electronically Signed On 10-09-21 11:31:25 CDT by Azam Garcia
--- NOTE | 2021-10-09 12:00 | P.DS ---
Admission Date: 10/04/21 Discharge Date: 10/09/21 Disposition: ROUTINE DISCHARGE Discharge Condition: GOOD Reason for Admission: Colitis Consultations: GI - Dr. Perales Brief History of Present Illness: 81-year-old female with history of small bowel obstruction, gastroparesis, and GERD who presents to the ED with complaints of vomiting, abdominal pain, and constipation. Patient reports that she has been experiencing intermittent abdominal pain for 8 months now. She has been seeing Dr. Fierro outpatient who has done many tests. She is supposed to see him in a few days for the results. She states that she has not had a BM in about 1.5 days. Denies passing gas. Abdomen is soft, not distened, hypoactive bowel sounds. RN reports that patient hasn't been vomiting any contents, mainly dry heaving. Her labs today are significant for WBC 15, BUN 27, urine positive for UTI. Electrolytes WNL. CT was suggestive of colitis. She was started on Cipro and Flagyl, broke out in hives and was subsequently transitioned to Zosyn. Given morphine and Zofran with improvement in symptoms. ED provider wishes to admit patient for further evaluation and treatment. Hospital Course: Problem List Abd pain, intractable nausea/vomiting Colitis Constipation GERD h/o gastroparesis h/o SBO Patient presented with abdominal pain and intractable nausea/vomiting, fever. Imaging revealed possible colitis. She was treated with IV zosyn (switched after developing hives after cipro/flagyl in the ER. Her leukocytosis and symptoms slowly improved. She was tolerating PO diet on day of discharge without nausea/vomiting. Patient developed some constipation during hospitalization as well, which improved with a dose of lactulose and dulcolax suppository. GI, Dr. Perales, was consulted. Recommended to continue antibiotics and cleared for discharge. Patient improved, had bowel movement on morning of discharge and was tolerating her diet. She reported feeling much better and ready to go home. Discharged with 7 days of Augmentin to complete treatment for colitis. Recommended daily probiotic. Follow up with PCP within 3-5 days. Follow up with GI in 2-3 weeks. Physical Exam: Gen: NAD, alert HEENT: normal conjunctiva, sclera anicteric CV: regular rate & rhythm, no edema Pulm: non-labored respirations, clear bilaterally Abd: soft, very mild discomfort to palpation diffusely Neuro: normal speech, normal affect, moves all extremities Vital Signs/Physical Exam: Temp Pulse Resp BP Pulse Ox 98.8 F 96 H 16 162/61 H 95 10/09/21 08:00 10/09/21 08:00 10/09/21 08:00 10/09/21 08:00 10/09/21 08:00 Laboratory Data at Discharge: WBC 7.70 K/uL (4.3-10.9) D 10/09/21 03:20 Hgb 11.8 g/dL (12.0-15.0) L 10/09/21 03:20 Hct 34.4 % (36.0-45.0) L 10/09/21 03:20 Plt Count 270 K/uL (152-406) D 10/09/21 03:20 Sodium 137 mmol/L (136-145) 10/09/21 03:20 Potassium 3.5 mmol/L (3.5-5.1) 10/09/21 03:20 BUN 4 mg/dL (7-18) L 10/09/21 03:20 Creatinine 0.34 mg/dL (0.55-1.3) L 10/09/21 03:20 Glucose 120 mg/dL (74-106) H 10/09/21 03:20 Magnesium 1.7 mg/dL (1.8-2.4) L 10/09/21 03:20 Total Bilirubin 0.5 mg/dL (0.2-1.0) 10/09/21 03:20 AST 14 U/L (15-37) L 10/09/21 03:20 ALT 18 U/L (12-78) 10/09/21 03:20 Alkaline Phosphatase 83 U/L (45-117) 10/09/21 03:20 Lipase 85 U/L (73-393) 10/03/21 22:20 Home Medications: Esomeprazole Magnesium [Nexium 24Hr] 40 mg PO DAILY 10/04/21 Ondansetron [Zofran (Odt)*] 4 mg PO Q6H PRN 10/04/21 traMADol HCL [Ultram*] 50 mg PO TID PRN 10/04/21 Acidophilus/Bifido Longum [Lactobacillus Capsule] 16 mg PO DAILY 21 Days #21 cap 10/09/21 Amox/Clavulanate [Augmentin 875-125 Tab] 1 tab PO BID 7 Days #14 tab 10/09/21 New Medications: Amox/Clavulanate [Augmentin 875-125 Tab] 1 tab PO BID 7 Days #14 tab Acidophilus/Bifido Longum [Lactobacillus Capsule] 16 mg PO DAILY 21 Days #21 cap Physician Discharge Instructions: Patient presented with abdominal pain and intractable nausea/vomiting, fever. Imaging revealed possible colitis. She was treated with IV zosyn (switched after developing hives after cipro/flagyl in the ER. Her leukocytosis and symptoms slowly improved. She was tolerating PO diet on day of discharge without nausea/vomiting. Patient developed some constipation during hospitalization as well, which improved with a dose of lactulose and dulcolax suppository. GI, Dr. Perales, was consulted. Recommended to continue antibiotics and cleared for discharge. Patient improved, had bowel movement on morning of discharge and was tolerating her diet. She reported feeling much better and ready to go home. Discharged with 7 days of Augmentin to complete treatment for colitis. Recommended daily probiotic. Follow up with PCP within 3-5 days. Follow up with GI in 2-3 weeks. Time spent managing pt's care (in minutes): 45
[2021-10-09 12:09] VITALS: BP 139/63; TEMP 98.5
== END 2021-10-09 13:30 | disposition home or self-care (01) | DRG 392 ==
LOC: ER 21:20 → ERHOLD 10-04 02:25 → 2ND 10-04 08:21
PROVIDERS: ADMIT Internal Medicine; ATTEND Internal Medicine
DX: K52.9 Noninfective gastroenteritis and colitis, unspecified (principal); J30.9 Allergic rhinitis, unspecified; K59.00 Constipation, unspecified; K21.9 Gastro-esophageal reflux disease without esophagitis; K31.84 Gastroparesis; L50.9 Urticaria, unspecified; T36.8X5A Adverse effect of other systemic antibiotics, initial encounter; T37.3X5A Adverse effect of other antiprotozoal drugs, initial encounter; Y92.230 Patient room in hospital as the place of occurrence of the external cause; K63.5 Polyp of colon; K29.70 Gastritis, unspecified, without bleeding; Z20.822 Contact with and (suspected) exposure to COVID-19
CPT/HCPCS: 36415; 74018; 74176; 80048; 80053; 81003; 81015; 83690; 83735; 85025; 85027; 87086; 87088; 87811; 93005; 96365; 96367; 96375; 99285; C9113; J0744; J1200; J1650; J2405; J2543; J2550; J2765; J3475; J3480